=== PATIENT | male | born 1940 | race Caucasian/White ===

== ENCOUNTER → 2017-07-17 | Outpatient (CLI) | payer OTHER ==
[~2017-07-17] MED LIST: ASPIR 8181 MG PO; ASPIRIN EC81 M1 PO; ASPIRIN325 PO; COUMADIN 5 MG TA5 M1 PO; DICLOFENAC SODI75 MG PO; FISH OIL 1,0001 EAC5 PO; HYDROCODON-ACE1 EAC5; HYDROCODON-ACE1 EAC7 PO; IBUPROFEN 200200 M1 PO; IRON325 PO; JANTOVEN5 MG PO; LEVOTHYROXINE0.05 MG PO; MAGNESIUM400 MG PO; MOBIC15 MG PO; MS CONTIN15 MG PO; MULTIVITAMINS PO; NEURONTIN 300300 M1 PO; PERCOCET 5-3251 EACH PO; PROPAFENONE HC325 MG PO; SAW PALMETTO C1 EACH PO; TAMSULOSIN HCL0.4 M1 PO; TOPROL XL50 MG PO; TRI-BUFFERED A325 M1 PO
== END ==
LOC: ULTRA 10:36
DX: M79.89 Other specified soft tissue disorders (principal); M79.605 Pain in left leg

== ENCOUNTER 2017-12-17 05:32 | Inpatient (IN) | payer OTHER ==
[2017-12-08 09:06] LABS: HEMOGLOBIN 13.9 gm/dL (14.0-18.0); MCH 33.8 pg (26.0-34.0); MCHC 34.7 g/dL (28.0-37.0); MCV 97.4 fL (80.0-100.0); RBC 4.11 mil/uL (4.50-6.00); RDW 13.7 % (10.5-14.5); WBC 3.8 thou/uL (4.0-11.0)
[2017-12-08 09:08] LABS: URINE BILIRUBIN NEGATIVE (Negative); URINE BLOOD NEGATIVE (Negative); URINE CLARITY CLEAR; URINE COLOR YELLOW; URINE GLUCOSE-RANDOM* NEGATIVE (Negative); URINE KETONES NEGATIVE (Negative); URINE LEUKOCYTES-REFLEX NEGATIVE (Negative); URINE NITRITE-REFLEX NEGATIVE (Negative); URINE PROTEIN (DIPSTICK) NEGATIVE (Negative); URINE UROBILINOGEN 0.2 E.U./dl (0.2-1.0)
[2017-12-08 09:19] LABS: ALBUMIN 3.9 g/dL (3.4-5.0); CALCIUM 9.2 mg/dL (8.5-10.1); CREATININE 1.5 mg/dL (0.7-1.3); POTASSIUM 4.6 mmol/L (3.5-5.1)
[2017-12-08 09:30] LABS: PROTIME 10.2 Seconds (9.3-11.4)
[~2017-12-17] VITALS: Ht 162.6 cm; Wt 70.8 kg
--- NOTE | ~2017-12-17 | O ---
[facility] [place] [address] OPERATIVE REPORT Name: DARRIUS CRUZ Room #: 150-10 ADM IN M.R.#: [id number] Admission: 12/17/17 Attend Phys: Mio Reid MD Discharge: Date of : 41 Report #: [id number] THIS REPORT FOR: //name// CC: Janessa Reid DATE OF SERVICE: 12/17/2017 PREOPERATIVE DIAGNOSIS: Left knee osteoarthritis. POSTOPERATIVE DIAGNOSIS: Left knee osteoarthritis. PROCEDURE: Left total knee arthroplasty with Navio assistance. SURGEON: Mio Reid MD FORESTRY LABORER: Angélica Avila PA-C INDICATIONS FOR ASSISTANCE: Throughout the case, extensive retraction and manipulation of the knee was required. This was afforded to me by my assistant vice president. ANESTHESIA: LMA with an adductor canal block. IMPLANTS: Santana and Nephew size 6 Legion cobalt chrome posterior stabilized femur, a size 5 tibia, a size 35 patella and a size 10 polyethylene. TOURNIQUET TIME: 76 minutes. ESTIMATED BLOOD LOSS: 25 mL. COMPLICATIONS: None. SPECIMENS: None. CONDITION UPON LEAVING THE OPERATING ROOM: Stable. INDICATION FOR PROCEDURE: The patient is a 77-year-old gentleman with severe left knee osteoarthritis. He had failed conservative treatment for this and after discussion with him, he elected for left total knee arthroplasty. DESCRIPTION OF PROCEDURE: Risks, benefits, alternatives, complications were discussed in detail with the patient including but not limited to risk of anesthesia, risk of damage to nerves, arteries and blood vessels, risk for infection and bleeding, risk for continued knee pain, need for reoperation. Informed consent was obtained from the patient. The left knee was appropriately marked in the preoperative holding area. IV Ancef was given for preoperative [address] [address] OPERATIVE REPORT Name: DARRIUS CRUZ Room #: 150-10 ADM IN M.R.#: [id number] Admission: 12/17/17 Attend Phys: Mio Reid MD Discharge: Date of : 41 Report #: [id number] antibiotics. He was brought to the operating room and placed in the supine position on the operating room table. LMA anesthesia was induced without complication. Tourniquet was placed on the left thigh. Left lower extremity was prepped and draped in normal sterile fashion. Timeout was performed properly identifying the patient and procedure as well as the instrumentation and implants. All in the operating room were in agreement. Left lower extremity was exsanguinated. Tourniquet was inflated. Tourniquet time was 76 minutes. Standard midline approach to the knee was made with a 10 blade through the skin. Dissection was taken down sharply to the fascia and deep flaps were developed medially and laterally. Fresh 10 blade was used to make a medial parapatellar arthrotomy and the knee was inspected. There was significant severe tricompartmental osteoarthritis. Anterior horns of meniscus were removed sharply. ACL and PCL were removed sharply. Reference pins were then placed into the femur and the tibia and the knee was then digitally mapped using the NaviMER computerized system. Intraoperative plan was then made, sizing for a size 6 femur and a size 5 tibia. The distal femoral cut was then made with a Navio bur. The size 6, 4-in-1 cutting block was placed and the anterior, posterior and chamfer cuts were made on the femur. Attention was then turned to the tibia. The tibial resection guide was pinned in place using Navio and tibial resection was made. The remainder of the menisci were removed with Bovie cautery. Flexion and extension gaps were checked and found to have good balance in flexion and extension both medially and laterally. Tibia was sized, found to be a size 5. A size 5 tibial trial was placed and punched. A size 6 femoral trial was placed and the box cut was made and this was then trialed with a size 9 and then a size 10 polyethylene. The size 10 polyethylene had good balance in flexion and extension both medially and laterally, both manually as well as digitally on the Navio system. A 9 mm was taken off the posterior surface of the patella and a size 35 patellar trial was placed. Knee was taken through range of motion, found to be stable, found to have good balance in flexion and extension with good patellar tracking. Trial components were removed. Bone ends were thoroughly irrigated with normal saline. A final size 5 tibia, size 6 Legion cobalt chrome posterior stabilized femur and a size 35 patella were cemented in place using standard cementation techniques. While the cement cured, a periarticular injection consisting of morphine, ropivacaine, epinephrine and Toradol was placed around the knee joint. After the cement cured, the tourniquet was deflated. Hemostasis was obtained with Bovie cautery. Final size 10 polyethylene was placed. A gram of vancomycin was placed deep in the joint. Fascia was closed with 0 Vicryl, skin was closed with 2-0 Vicryl, 3-0 Monocryl and a CRISTOBAL dressing was applied. The patient tolerated this procedure well and went to recovery room under care of anesthesia postoperatively. By: [id number] Mio Reid MD /kristina
[~2017-12-17 05:32] MED LIST changes: -ASPIR 8181 MG PO; -HYDROCODON-ACE1 EAC7 PO; -MS CONTIN15 MG PO; -NEURONTIN 300300 M1 PO; -PERCOCET 5-3251 EACH PO; -TRI-BUFFERED A325 M1 PO
[2017-12-17 14:46] VITALS: BP 130/71
[2017-12-17 18:02] VITALS: BP 140/87
[2017-12-17 20:08] VITALS: BP 140/87
[2017-12-17 20:35] VITALS: BP 121/71
[2017-12-18 00:16] VITALS: BP 120/70
[2017-12-18 03:57] VITALS: BP 110/67
[2017-12-18 06:19] LABS: HEMATOCRIT 31.5 % (42.0-52.0); HEMOGLOBIN 10.8 gm/dL (14.0-18.0); MCHC 34.4 g/dL (28.0-37.0); MCV 98.7 fL (80.0-100.0); RBC 3.19 mil/uL (4.50-6.00); RDW 13.4 % (10.5-14.5); WBC 6.7 thou/uL (4.0-11.0)
[2017-12-18 15:47] VITALS: BP 93/52
[2017-12-18 19:30] VITALS: BP 104/61
[2017-12-19 04:09] VITALS: BP 97/57
[2017-12-19 06:43] LABS: HEMOGLOBIN 10.1 gm/dL (14.0-18.0); MCH 34.3 pg (26.0-34.0); MCHC 34.9 g/dL (28.0-37.0); MCV 98.5 fL (80.0-100.0); RBC 2.94 mil/uL (4.50-6.00); RDW 13.1 % (10.5-14.5); WBC 6.3 thou/uL (4.0-11.0)
[2017-12-19 07:50] VITALS: BP 107/58
[2017-12-19] MEDS ORDERED: TRI-BUFFERED A325 M1 PO (14:53)
[2017-12-19] MEDS ORDERED: MS CONTIN15 MG PO (14:54)
[2017-12-19] MEDS ORDERED: NEURONTIN 300300 M1 PO (14:54)
[2017-12-19] MEDS ORDERED: HYDROCODON-ACE1 EAC7 PO (14:54)
[2017-12-19 17:40] VITALS: BP 95/65
[2017-12-19 20:39] VITALS: BP 114/66
[2017-12-20 04:52] VITALS: BP 112/65
[2017-12-20 06:18] LABS: HEMATOCRIT 28.9 % (42.0-52.0); HEMOGLOBIN 10.2 gm/dL (14.0-18.0); MCH 34.5 pg (26.0-34.0); MCHC 35.2 g/dL (28.0-37.0); RBC 2.95 mil/uL (4.50-6.00); RDW 13.1 % (10.5-14.5); WBC 6.6 thou/uL (4.0-11.0)
[2017-12-20 08:05] VITALS: BP 108/62
[2017-12-20 20:15] VITALS: BP 105/57
[2017-12-21 03:52] VITALS: BP 85/40
[2017-12-21 07:50] VITALS: BP 97/57
[2017-12-21 11:39] LABS: CALCIUM 8.4 mg/dL (8.5-10.1); CREATININE 1.4 mg/dL (0.7-1.3); POTASSIUM 4.7 mmol/L (3.5-5.1)
[2017-12-21 14:29] VITALS: BP 97/57
[2017-12-21 14:34] VITALS: BP 97/57
[2017-12-21 14:37] VITALS: BP 97/57
== END 2017-12-21 15:38 | disposition home or self-care (01) | DRG 470 ==
LOC: 4E 05:32 → TBA 05:32 → PRE 05:35 → 4E 17:35
PROVIDERS: Orthopaedic Surgery; Physician Assistant Surgical
PROC: 0SRD0J9 Replacement of Left Knee Joint with Synthetic Substitute, Cemented, Open Approach (ICD-10-PCS; principal; 2017-12-17)
DX: M17.12 Unilateral primary osteoarthritis, left knee (principal); M18.12 Unilateral primary osteoarthritis of first carpometacarpal joint, left hand; M19.042 Primary osteoarthritis, left hand; M79.1 Myalgia; Z96.651 Presence of right artificial knee joint; Z79.899 Other long term (current) drug therapy; Z88.2 Allergy status to sulfonamides; Z90.49 Acquired absence of other specified parts of digestive tract; Z82.49 Family history of ischemic heart disease and other diseases of the circulatory system
CPT/HCPCS: 10783; 50010; 50101; 50415; 50954; 51130; 51225; 51771; 53000; 53078; 53364; 54118; 56527; 56528; 57095; 57127; 62110; 62900; 70005

== ENCOUNTER 2018-01-16 05:53 | Day surgery (SDC) | payer OTHER ==
[~2018-01-16] VITALS: Ht 167.6 cm; Wt 70.3 kg
--- NOTE | ~2018-01-16 | O ---
[facility] [place] [address] [place] [address] OPERATIVE REPORT Name: DARRIUS CRUZ Room #: DEP [facility] M.Marky.#: [id number] Admission: 01/16/18 Attend Phys: Mio Reid MD Discharge: 01/16/18 Date of : 41 Report #: [id number] THIS REPORT FOR: //name// CC: Janessa Yonathan Reid DATE OF SERVICE: 01/16/2018 PREOPERATIVE DIAGNOSIS: Left knee quadriceps tear, status post total knee arthroplasty. POSTOPERATIVE DIAGNOSIS: Left knee medial retinacular tear, status post left total knee arthroplasty. PROCEDURE: Primary repair of left knee retinacular tear. SURGEON: Mio Reid MD. MEDICAL INSTRUMENT TECHNICIAN: Angélica Avila PA-C. ANESTHESIA: LMA. TOURNIQUET TIME: 27 minutes. ESTIMATED BLOOD LOSS: 10 mL. COMPLICATIONS: None. SPECIMENS: None. CONDITION UPON LEAVING THE OPERATING ROOM: Stable. INDICATIONS FOR PROCEDURE: The patient is a 77-year-old gentleman who is about 4 weeks out from a left knee arthroplasty and had significant swelling in his knee. He presented to the office and had exam consistent with a quadriceps tendon tear. He had an ultrasound performed by one of my partners confirming this and after discussion with him, we decided for primary tendon repair. DESCRIPTION OF PROCEDURE: Risks, benefits, alternatives, complications were discussed in detail with the patient including but not limited to risk of anesthesia, risk of damage to nerves, arteries, blood vessels, risk for infection and need for reoperation. Informed consent was obtained from the patient. Left knee was appropriately marked in the preoperative holding area. He was brought to the operating room and placed in the supine position on the operating room table. LMA anesthesia was induced without complication. Tourniquet was placed on the left thigh. Left lower extremity was prepped and [facility] [address] [place] [address] OPERATIVE REPORT Name: DARRIUS CRUZ Room #: DEP [facility] Edwin#: [id number] Admission: 01/16/18 Attend Phys: Mio Reid MD Discharge: 01/16/18 Date of : 41 Report #: [id number] draped in normal sterile fashion. Timeout was performed properly identifying the patient and procedure as well as the instrumentation and implants. All in the operating room were in agreement. Left lower extremity was exsanguinated, tourniquet was inflated. Tourniquet time was 27 minutes. The previous incision from his knee arthroplasty was then opened with a 10 blade through the skin and upon entering the deep layers of the medial and lateral full-thickness flaps were developed easily. There was a large hemarthrosis that was removed and the tear was inspected. He essentially had torn his medial retinacular incision, this did extent off the patella. This was thoroughly irrigated and it was felt that this could be primarily repaired and backed up with a FiberWire suture. After very thorough irrigation, the retinacular incision was repaired with interrupted 0 Vicryl sutures. A 2-0 FiberWire was also used for repair of the retinaculum. After repair, this was inspected and found to have excellent tension on the repair even at 90 degrees of knee flexion. Tourniquet was deflated. Hemostasis was obtained with Bovie cautery and the skin was closed with 2-0 Vicryl and skin venkatesh were applied. A hinged knee brace was applied and this was locked from 0-60 degrees. He went to the recovery room under care of anesthesia postoperatively. <ELECTRONICALLY SIGNED> By: Mio Reid MD 01/22/18 0741 [id number] Mio Reid MD /nt
[~2018-01-16 05:53] MED LIST changes: +HYDROCODON-ACE1 EAC7 PO; +MS CONTIN15 MG PO; +NEURONTIN 300300 M1 PO; +TRI-BUFFERED A325 M1 PO
[2018-01-16] MEDS ORDERED: ASPIR 8181 MG PO (09:51)
[2018-01-16 13:57] VITALS: BP 124/71
[2018-01-16] MEDS ORDERED: PERCOCET 5-3251 EACH PO (15:11)
[2018-01-16 16:01] VITALS: BP 124/71
== END 2018-01-16 16:35 | disposition home or self-care (01) ==
LOC: TBA 05:53 → OR 05:53
DX: S76.112A Strain of left quadriceps muscle, fascia and tendon, initial encounter (principal); M17.12 Unilateral primary osteoarthritis, left knee; Z96.652 Presence of left artificial knee joint; Z98.890 Other specified postprocedural states; Z79.899 Other long term (current) drug therapy; Z88.2 Allergy status to sulfonamides; Z88.8 Allergy status to other drugs, medicaments and biological substances; Z79.82 Long term (current) use of aspirin; X58.XXXA Exposure to other specified factors, initial encounter; Y93.89 Activity, other specified; Y92.89 Other specified places as the place of occurrence of the external cause; Y99.8 Other external cause status
CPT/HCPCS: 50010; 50101; 50415; 50954; 51412; 51771; 53078; 56528; 56530; 57095; 57103; 57105; 57116; 62110; 62900; 64037; 70005

== ENCOUNTER → 2019-11-10 | Outpatient (CLI) | payer OTHER ==
[~2019-11-10] MED LIST changes: +ASPIR 8181 MG PO; +PERCOCET 5-3251 EACH PO
== END ==
LOC: SJCVC 11:33
DX: R94.31 Abnormal electrocardiogram [ECG] [EKG] (principal); I21.29 ST elevation (STEMI) myocardial infarction involving other sites; I48.0 Paroxysmal atrial fibrillation; E78.5 Hyperlipidemia, unspecified; I35.1 Nonrheumatic aortic (valve) insufficiency

== ENCOUNTER → 2020-05-26 | Outpatient (CLI) | payer OTHER | LOC: SJCVC 10:04 | PROVIDERS: ATTEND Internal Medicine | DX: R00.1 Bradycardia, unspecified (principal); R94.31 Abnormal electrocardiogram [ECG] [EKG]; I48.0 Paroxysmal atrial fibrillation; I35.1 Nonrheumatic aortic (valve) insufficiency; E78.5 Hyperlipidemia, unspecified; Z79.82 Long term (current) use of aspirin; Z79.899 Other long term (current) drug therapy ==

== ENCOUNTER → 2020-11-29 | Outpatient (CLI) | payer OTHER | LOC: SJCVCIMAG 09:13 | PROVIDERS: ATTEND Internal Medicine | DX: I08.3 Combined rheumatic disorders of mitral, aortic and tricuspid valves (principal); R94.31 Abnormal electrocardiogram [ECG] [EKG]; I49.49 Other premature depolarization; I48.0 Paroxysmal atrial fibrillation; E78.5 Hyperlipidemia, unspecified; Z90.49 Acquired absence of other specified parts of digestive tract; Z88.2 Allergy status to sulfonamides; Z88.8 Allergy status to other drugs, medicaments and biological substances; Z79.82 Long term (current) use of aspirin; Z79.899 Other long term (current) drug therapy ==

== ENCOUNTER 2021-01-22 08:24 | Inpatient (IN) | payer OTHER ==
[~2021-01-22] VITALS: Ht 165.1 cm; Wt 64.0 kg
[2021-01-22 08:41] VITALS: BP 122/95
[2021-01-22 08:53] LABS: URINE BILIRUBIN NEGATIVE (Negative); URINE BLOOD TRACE (Negative); URINE CLARITY CLEAR; URINE COLOR YELLOW; URINE GLUCOSE-RANDOM* NEGATIVE (Negative); URINE KETONES NEGATIVE (Negative); URINE LEUKOCYTES-REFLEX NEGATIVE (Negative); URINE NITRITE-REFLEX NEGATIVE (Negative); URINE PROTEIN (DIPSTICK) NEGATIVE (Negative); URINE UROBILINOGEN 0.2 E.U./dl (0.2-1.0)
[2021-01-22 09:00] LABS: HEMATOCRIT 40.6 % (42.0-52.0); HEMOGLOBIN 13.8 gm/dL (14.0-18.0); MCH 33.4 pg (26.0-34.0); MCV 98.2 fL (80.0-100.0); PLATELET COUNT 172 thou/uL (150-400); RBC 4.13 mil/uL (4.50-6.00); RDW 14.3 % (10.5-14.5); WBC 2.3 thou/uL (4.0-11.0)
[2021-01-22 09:16] LABS: CALCIUM 8.6 mg/dL (8.5-10.1); CREATININE 1.1 mg/dL (0.7-1.3); POTASSIUM 4.1 mmol/L (3.5-5.1)
[2021-01-22 09:22] LABS: ALBUMIN 3.4 g/dL (3.4-5.0); TOTAL BILIRUBIN 0.6 mg/dL (0.2-1.0); TOTAL PROTEIN 6.8 g/dL (6.4-8.2)
[2021-01-22 10:05] LABS: ABSOLUTE NEUTROPHILS 1.2 thou/uL (1.4-8.2); PLATELET ESTIMATE NORMAL
--- NOTE | 2021-01-22 10:36 | EKG ---
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 : 1940 Requested By: Seymour Loomis Order Number: [id number] MD: Rolando Puckett Measurements Intervals [place] Rate: 64 P: 48 SC: 162 QRS: -18 QRSD: 104 T: 46 QT: 413 QTc: 426 Interpretive Statements Sinus rhythm Borderline left axis deviation Baseline wander in lead(s) V3 Compared to ECG 01/01/2012 10:06:00 Sinus bradycardia no longer present Electronically Signed On 01-22-2021 10:36:07 CDT by Rolando Puckett [email or web address] <ELECTRONICALLY SIGNED> By: Rolando Puckett MD, [facility] 01/22/21 1036 1004 03 Rolando Puckett MD, FACPasha /EPI
[2021-01-22 12:06] LABS: TROPONIN-I 0.17 ng/mL (<0.06)
[2021-01-22 15:00] VITALS: BP 128/71
[2021-01-22 16:58] VITALS: BP 122/69
--- NOTE | 2021-01-22 17:33 | NUR ---
80 year old male well known to Dr. Melendez with a hx of paroxysmal atrial fibrillation presented to the ED on 01-22-21 for complaints of GI pain, nausea, vomiting and diarrhea for the past 7 days. The patient also reports feeling more fatigued. ID NOW in the ED is negative and patient reports vaccinated with Moderna in August. The patient has been admitted for: Generalized weakness - possible rhabdomyolysis, dehydration and consults for Cardiology has been placed. The patient was found to have an elevated troponins. The patients Juany at [phone] is listed as his next of kin. The patient is a PCP patient of Dr. Janessa Mcmanus. The patient was ambulatory upon arrival to the ED brought in by private vehicle. The ED lists the patient as A&O x4. Attempted to reach without success on cell of [phone], but was able to reach the at home as she just returned from the ED to home at [phone]. Re-explained role of CM and discussed last interaction in 2018 and outpatient needs following a left knee tear and repair at that time. Explained after MD plans of care and treatment plan are established and therapy evaluated; that CM will be in touch for discharge needs. CM will continue to follow.
[2021-01-22 18:40] VITALS: BP 134/69
[2021-01-22 20:02] VITALS: BP 134/76
[2021-01-22 21:40] LABS: TROPONIN-I 0.18 ng/mL (<0.06)
--- NOTE | 2021-01-23 02:29 | NUR ---
new admission for weakness and anorexia for a week. patient aox4 makes needs known. patient needs minimum assistance with adl, bed mobility, transfer and toileting. fall precaution in place.patient in bed asleep at this time breathing regular and unlaboured.
[2021-01-23 05:07] LABS: GLYCOHEMOGLOBIN (HGB A1C) 5.9 % (4.8-5.6)
[2021-01-23 05:39] LABS: HEMATOCRIT 36.7 % (42.0-52.0); HEMOGLOBIN 12.6 gm/dL (14.0-18.0); MCH 34.1 pg (26.0-34.0); MCHC 34.5 g/dL (28.0-37.0); MCV 98.9 fL (80.0-100.0); RBC 3.71 mil/uL (4.50-6.00); RDW 14.2 % (10.5-14.5); WBC 2.9 thou/uL (4.0-11.0)
[2021-01-23 06:02] LABS: ALBUMIN 2.8 g/dL (3.4-5.0); CALCIUM 8.1 mg/dL (8.5-10.1); POTASSIUM 4.5 mmol/L (3.5-5.1); TOTAL BILIRUBIN 0.4 mg/dL (0.2-1.0); TOTAL PROTEIN 5.9 g/dL (6.4-8.2)
[2021-01-23 07:31] VITALS: BP 125/67
--- NOTE | 2021-01-23 09:13 | NUR ---
80 year old male well known to Dr. Melendez with a hx of paroxysmal atrial fibrillation presented to the ED on 01-22-21 for complaints of GI pain, nausea, vomiting and diarrhea for the past 7 days. The patient also reports feeling more fatigued. ID NOW in the ED is negative and patient reports vaccinated with Moderna in August. The patient has been admitted for: Generalized weakness - possible rhabdomyolysis, dehydration and consults for Cardiology has been placed. The patient was found to have an elevated troponins. The patients Juany at [phone] is listed as his next of kin. The patient is a PCP patient of Dr. Janessa Mcmanus. The patient was ambulatory upon arrival to the ED brought in by private vehicle. The ED lists the patient as A&O x4. Attempted to reach without success on cell of [phone], but was able to reach the at home as she just returned from the ED to home at [phone]. Re-explained role of CM and discussed last interaction in 2018 and outpatient needs following a left knee tear and repair at that time. Explained after MD plans of care and treatment plan are established and therapy evaluated; that CM will be in touch for discharge needs. CM will continue to follow. Based on chart review pt resides in a house with spouse. 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 Pt has fww, cane, crutches, and power wc for use at home. Cm following regarding dc planning.
[2021-01-23 16:45] VITALS: BP 131/89
--- NOTE | 2021-01-23 16:52 | NUR ---
Assumed pt care at 7am.Pt in bed resting without c/o.Assessment completed.vss. Dr Melendez and Jacqueline here,order noted.Pt here to visit,updates given. Regular diet given at lunch and well tolerated.Pt in and out of bed to br with sba .No verbal c/o or soa noted. Will continue to monitor.
[2021-01-23 20:15] VITALS: BP 134/67
--- NOTE | 2021-01-24 02:07 | NUR ---
PT CARE ASSUMED AT 1900 WITH PT SITTING IN CHAIR WITH SON AT BEDSIDE.PT IS A/O X4.PT IS UP WITH X1 ASSIST TO THE BATHROOM AND USES URINAL TO VOID.PT IS ON ROOM AIR.IV ACCESS IN RAC WITH 0.45NS @75CC/HR.PT DENIED PAIN ,NAUSEA AND VOMITING.WILL CONTINUE TO MONITOR PER POC
[2021-01-24 07:54] VITALS: BP 159/89
[2021-01-24 11:38] LABS: POTASSIUM 3.7 mmol/L (3.5-5.1)
--- NOTE | 2021-01-24 11:40 | NUR ---
ASSUMED PT CARE THIS AM. PT A&OX4, ABLE TO MAKE NEEDS KNOWN. PATIENT REMAINS CONTINENT, UP WITH ASSIST TO THE BATHROOM. PATIENT IS ON ROOM AIR. MEDICATION TAKEN WITHOUT ISSUE. IV PATENT, FLUIDS INFUSING. FALL PRECAUTIONS ARE IN PLACE, CALL LIGHT WITHIN REACH. FAMILY MEMBER AT BEDSIDE.
[2021-01-24 11:45] LABS: LIPASE 465 U/L (73-393)
[2021-01-24 11:47] LABS: ALBUMIN 3.1 g/dL (3.4-5.0); DIRECT BILIRUBIN 0.1 mg/dL (<0.1-0.2); TOTAL BILIRUBIN 0.5 mg/dL (0.2-1.0); TOTAL PROTEIN 6.2 g/dL (6.4-8.2)
[2021-01-24 15:40] VITALS: BP 156/88
--- NOTE | 2021-01-24 16:15 | NUR ---
HOSPITALIST INDICATED THAT PT WILL LIKELY BE MEDICALLY STABLE TO DC HOME TOMORROW. PT AND OT SAW PT AND INDICATED HE WOULD BE SAFE FOR DC HOME ONCE MEDICALLY STABLE. CM FOLLOWING REGARING DC PLANNING.
[2021-01-24 20:00] VITALS: BP 135/82
--- NOTE | 2021-01-25 02:36 | NUR ---
PT CARE ASSUMED WITH PT IN CHAIR WATCHING TV.PT IS A/O X4.PT IS UP WITH X1 ASSIST TO BATHROOM AND USES URINAL TO VOID.PT DENIED ANY PAIN AND HAS MELATONIN FOR SLEEP AID.IV ACCESS ON RFA WITH NS AT 100CC/HR.PT IS ON ROOM AIR.WILL CONTINUE TO MONITOR
[2021-01-25 06:16] LABS: HEMATOCRIT 35.3 % (42.0-52.0); HEMOGLOBIN 12.2 gm/dL (14.0-18.0); MCH 33.9 pg (26.0-34.0); MCHC 34.5 g/dL (28.0-37.0); MCV 98.4 fL (80.0-100.0); RBC 3.59 mil/uL (4.50-6.00); WBC 3.6 thou/uL (4.0-11.0)
[2021-01-25 06:36] LABS: ALBUMIN 2.7 g/dL (3.4-5.0); CALCIUM 8.1 mg/dL (8.5-10.1); CREATININE 0.9 mg/dL (0.7-1.3); MAGNESIUM 1.7 mg/dL (1.8-2.4); POTASSIUM 3.7 mmol/L (3.5-5.1); TOTAL BILIRUBIN 0.6 mg/dL (0.2-1.0); TOTAL PROTEIN 5.5 g/dL (6.4-8.2)
[2021-01-25 08:05] VITALS: BP 158/84
--- NOTE | 2021-01-25 13:16 | NUR ---
ASSUMED CARE OF PATIENT AT SHIFT CHANGE. ASSESSMENT CHARTED. MEDICATIONS ADMINISTERED PER EMAR. VSS. PATIENT IS A&OX4 AND DENIES PAIN BUT VOICING NAUSEA. NO ANTI NAUSEA MEDS ON EMAR; PROVIDER INFORMED AND PROVIDED A ONETIME ORDER FOR COMPAZINE; ADMINISTERED W NOTED RELIEF. PROVIDER ALSO CONSULTED GI; EGD TO BE DONE TOMORROW 01/26. PATIENT WILL BE NPO AFTER MIDNIGHT. IVF INFUSING ON RFA W NO ISSUES. PATIENT VOICING NO FURTHER NEEDS. FALL PRECAUTIONS IN PLACE. WILL CONTINUE TO MONITOR AND FOLLOW PLAN OF CARE.
[2021-01-25 14:00] VITALS: BP 125/68
--- NOTE | 2021-01-25 14:05 | NUR ---
CARE TEAM INDICATED THAT PT IS PROGRESSING TOWARD GOAL OF DISCHARGING HOME. THEY INDICATED THAT PT WILL LIKELY BE DC READY TOMORROW. CM FOLLOWING REGARDING DC PLANNING.
[2021-01-25 19:28] VITALS: BP 145/85
[2021-01-26 02:26] LABS: HEMATOCRIT 33.8 % (42.0-52.0); HEMOGLOBIN 11.9 gm/dL (14.0-18.0); MCH 34.6 pg (26.0-34.0); MCHC 35.3 g/dL (28.0-37.0); MCV 98.2 fL (80.0-100.0); RBC 3.45 mil/uL (4.50-6.00); RDW 14.1 % (10.5-14.5); WBC 7.5 thou/uL (4.0-11.0)
[2021-01-26 02:46] LABS: ALBUMIN 2.8 g/dL (3.4-5.0); CALCIUM 7.8 mg/dL (8.5-10.1); CREATININE 0.9 mg/dL (0.7-1.3); POTASSIUM 3.7 mmol/L (3.5-5.1); TOTAL BILIRUBIN 0.6 mg/dL (0.2-1.0); TOTAL PROTEIN 5.4 g/dL (6.4-8.2)
--- NOTE | 2021-01-26 03:32 | NUR ---
Today this pt has been NSR in the 60s to 70s with no stated pain and stable VS. He has been sleep for most of the nigth while using the urinal at bedside. He has tolerated his IV fluids well and he has been NPO at midnight awaiting his procedure later today.
[2021-01-26 04:06] LABS: HAV IgM AB (ANTI-HAV IgM) Negative (Negative); HEPATITIS B SURFACE AG Negative (Negative); HEPATITIS C VIRUS AB <0.1 (0.0-0.9)
[2021-01-26 07:11] VITALS: BP 142/75
[2021-01-26] MEDS ORDERED: PROTONIX40 M2 PO (14:59)
[2021-01-26 15:16] VITALS: BP 125/64
[2021-01-26 15:26] VITALS: BP 142/75
== END 2021-01-26 16:49 | disposition home or self-care (01) | DRG 384 ==
LOC: ER 08:24 → EROBS 14:12 → 4W 14:12 → EROBS 16:00 → 4W 19:20
PROVIDERS: Emergency Medicine; Internal Medicine; Nurse Practitioner; Physician Assistant; ADMIT Internal Medicine; ATTEND Internal Medicine
PROC: 0DB68ZX Excision of Stomach, Via Natural or Artificial Opening Endoscopic, Diagnostic (ICD-10-PCS; principal; 2021-01-26)
DX: K25.9 Gastric ulcer, unspecified as acute or chronic, without hemorrhage or perforation (principal); M62.82 Rhabdomyolysis; E87.1 Hypo-osmolality and hyponatremia; K29.70 Gastritis, unspecified, without bleeding; E86.0 Dehydration; Z20.822 Contact with and (suspected) exposure to COVID-19; F32.9 Major depressive disorder, single episode, unspecified; F41.9 Anxiety disorder, unspecified; Z96.653 Presence of artificial knee joint, bilateral; I48.0 Paroxysmal atrial fibrillation; I08.0 Rheumatic disorders of both mitral and aortic valves; R53.81 Other malaise; G47.00 Insomnia, unspecified; D50.9 Iron deficiency anemia, unspecified; Z85.46 Personal history of malignant neoplasm of prostate; Z90.49 Acquired absence of other specified parts of digestive tract; Z86.14 Personal history of Methicillin resistant Staphylococcus aureus infection; Z88.8 Allergy status to other drugs, medicaments and biological substances; Z88.6 Allergy status to analgesic agent; Z91.013 Allergy to seafood; Z82.49 Family history of ischemic heart disease and other diseases of the circulatory system; Z79.82 Long term (current) use of aspirin; Z79.899 Other long term (current) drug therapy; Z80.41 Family history of malignant neoplasm of ovary
CPT/HCPCS: 10045; 62110; 62900; 70005

== ENCOUNTER 2021-01-28 10:40 | Observation (INO) | payer OTHER ==
[~2021-01-28] VITALS: Ht 165.1 cm; Wt 69.4 kg
--- NOTE | ~2021-01-28 | HC ---
[facility] [address] [place] [address] CONSULTATION Name: DARRIUS CRUZ Room #: 218-P [facility] Edwin#: [id number] Admission: 01/28/21 Attend Phys: Bryson Phillips MD Discharge: Date of : 41 Report #: [id number] THIS REPORT FOR: cc: Janessa Mcmanus MD, Nora P. MD Smithson, David G. MD ~ HISTORY OF PRESENT ILLNESS: The patient is a 80-year-old white male who was recently admitted to [facility], had hyponatremia, mild rhabdomyolysis, elevated troponin; underwent EGD, diagnosed with gastritis, placed on a PPI. Discharged home. Apparently mopped the floor at home with some cumulative trauma/repetitive discomfort to his wrist and placed a left wrist brace on. 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 He was leaning over and fell forward, hitting his head. He is readmitted to [facility]. CT of the head was negative. No complaints of losing consciousness. Laceration was sutured. Still does not like to eat very much because of the abdominal pain or nausea, although he thinks it is better than it was. We are seeing him in rehabilitation medicine consultation. PAST MEDICAL HISTORY: His prior medical history includes history of atrial fibrillation, prostate CA with radiation therapy, depression/anxiety, cholecystectomy, bilateral total knee replacements. HABITS: No history of tobacco abuse. Alcohol only on special occasions. SOCIAL HISTORY: Lives with his . Five steps in with rail to enter, was premorbidly independent without devices, works from home. His is retired. REVIEW OF SYSTEMS: No current complaints of chest pain, shortness of breath or abdominal discomfort. PHYSICAL EXAMINATION: The patient is a 80-year-old white male in no obvious distress. Last recorded temperature 97.6, pulse 79, respirations 18, blood pressure 130/73. He is alert and oriented. He has considerable ecchymosis and then has the laceration in the periorbital area. Follows basic 1-step commands. He has a left wrist orthosis in place, which is his own orthosis. Can move his thumb and fingers without difficulty. Functional range of motion of both upper extremities. No obvious coordination difficulties. In his lower extremities, no focal calf swelling, functional range of motion, strength is probably a grade 4 to 4- out of 5. Tone appeared to be intact. Functionally, he is transferring in OT with min assist to the toilet. He is min assist to ambulate without an assistive device to the bathroom. He is min assist for lower body dressing. ASSESSMENT: A 80-year-old white male with the following problem list: 1. Gait instability with fall. 2. Facial laceration. [address] [address] CONSULTATION Name: DARRIUS CRUZ Room #: 218-P [facility] M.R.#: [id number] Admission: 01/28/21 Attend Phys: Bryson Phillips MD Discharge: Date of : 41 Report #: [id number] 3. Troponin elevation. 4. Hyponatremia. 5. Paroxysmal atrial fibrillation. 6. Recent severe gastritis with elevated liver function tests. 7. Generalized weakness. PLAN: Physical therapy to evaluate. We are assessing the patient's current function and considering whether he may be appropriate for a short acute in-hospital inpatient rehabilitation stay. We will need to see how he does in therapies and see if he qualifies for a short rehabilitation stay and then, if he does qualify, we will need to see if he is amenable. We will be glad to follow along with you. By: [id number] Ferdinand Rodas MD /nt
[~2021-01-28 10:40] MED LIST changes: +PROTONIX40 M2 PO
[2021-01-28 10:56] VITALS: BP 134/81
[2021-01-28] MEDS ORDERED: LEVOTHYROXINE75 MCG PO (11:02)
[2021-01-28] MEDS ORDERED: VITAMIN D21250 MCG PO (11:02)
[2021-01-28 11:51] LABS: URINE BILIRUBIN NEGATIVE (Negative); URINE BLOOD NEGATIVE (Negative); URINE CLARITY CLEAR; URINE COLOR YELLOW; URINE GLUCOSE-RANDOM* NEGATIVE (Negative); URINE KETONES NEGATIVE (Negative); URINE LEUKOCYTES-REFLEX NEGATIVE (Negative); URINE NITRITE-REFLEX NEGATIVE (Negative); URINE PROTEIN (DIPSTICK) NEGATIVE (Negative); URINE SPECIFIC GRAVITY 1.015 (1.005-1.035)
[2021-01-28 11:59] LABS: CALCIUM 8.6 mg/dL (8.5-10.1); POTASSIUM 4.1 mmol/L (3.5-5.1)
[2021-01-28 12:03] LABS: ABSOLUTE NEUTROPHILS 5.9 thou/uL (1.4-8.2); APTT 27.6 Seconds (24.5-32.8); BASOPHILS 0.3 % (0.0-2.0); EOSINOPHILS 0.1 % (0.0-3.0); HEMATOCRIT 35.3 % (42.0-52.0); HEMOGLOBIN 11.8 gm/dL (14.0-18.0); LYMPHOCYTES 6.3 % (24.0-44.0); MCH 32.9 pg (26.0-34.0); MCHC 33.4 g/dL (28.0-37.0); MCV 98.4 fL (80.0-100.0); MONOCYTES 19.2 % (1.0-8.0); PLATELET COUNT 327 thou/uL (150-400); POLYS 74.1 % (36.0-66.0); PROTIME 10.9 Seconds (10.5-12.1); RBC 3.59 mil/uL (4.50-6.00); RDW 14.5 % (10.5-14.5); WBC 7.9 thou/uL (4.0-11.0)
[2021-01-28 12:05] LABS: TOTAL BILIRUBIN 1.2 mg/dL (0.2-1.0); TOTAL PROTEIN 6.7 g/dL (6.4-8.2)
[2021-01-28 13:50] LABS: FOLIC ACID 19.3 ng/mL (8.6-58.9)
[2021-01-28] MEDS ORDERED: PROPAFENONE 22225 M1 PO (14:26)
[2021-01-28 20:48] VITALS: BP 124/72
[2021-01-28 21:30] VITALS: BP 128/68
--- NOTE | 2021-01-29 01:48 | NUR ---
PATIENT IS A NEW PATIENT TO THE UNIT HE ARRIVED VIA CART FROM THE ER AND WAS ABLE TO AMBULATE TO THE BED WITH ASSISTANCE. PATIENT IS FULLY ALERT AND ORIENTED AND ABLE TO FULLY PARTICIPATE IN HIS ADMISSION AND CARE. VITAL SIGNS STABLE WITH PATIENT CLAIMING NO PAIN FROM EYE LACERATION. NURSE TO COMPLETE ADMISSION AND INITIATE PLAN OF CARE.
[2021-01-29 04:49] VITALS: BP 124/67
[2021-01-29 04:54] LABS: HEMATOCRIT 31.7 % (42.0-52.0); HEMOGLOBIN 10.8 gm/dL (14.0-18.0); MCH 33.7 pg (26.0-34.0); MCHC 34.1 g/dL (28.0-37.0); MCV 98.9 fL (80.0-100.0); RBC 3.2 mil/uL (4.50-6.00); RDW 14.2 % (10.5-14.5); WBC 7.1 thou/uL (4.0-11.0)
[2021-01-29 05:12] LABS: ALBUMIN 2.3 g/dL (3.4-5.0); CALCIUM 7.9 mg/dL (8.5-10.1); CREATININE 0.9 mg/dL (0.7-1.3); MAGNESIUM 1.8 mg/dL (1.8-2.4); PHOSPHORUS 2.7 mg/dL (2.5-4.9); POTASSIUM 3.6 mmol/L (3.5-5.1); TOTAL BILIRUBIN 0.8 mg/dL (0.2-1.0)
--- NOTE | 2021-01-29 07:29 | EKG ---
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1940 Requested By: Giovanny Rich Order Number: [id number] MD: Rolando Puckett Measurements Intervals [place] Rate: 78 P: 41 OR: 182 QRS: -15 QRSD: 105 T: 82 QT: 372 QTc: 424 Interpretive Statements Sinus rhythm Borderline left axis deviation Borderline low voltage, extremity leads Anteroseptal infarct, old Minimal ST depression, lateral leads Compared to ECG 01/22/2021 10:04:56 Myocardial infarct finding now present ST (T wave) deviation now present Electronically Signed On 01-29-2021 7:29:45 CDT by Rolando Puckett [email or web address] <ELECTRONICALLY SIGNED> By: Rolando Puckett MD, FAC 01/29/21 0729 1132 1132 Rolando Puckett MD, [facility] /EPI
[2021-01-29 08:00] VITALS: BP 130/73
[2021-01-29 12:08] VITALS: BP 125/70
[2021-01-29 16:00] VITALS: BP 126/76
[2021-01-29 17:06] LABS: HAV IgM AB (ANTI-HAV IgM) Negative (Negative); HEPATITIS B SURFACE AG Negative (Negative); HEPATITIS C VIRUS AB <0.1 (0.0-0.9)
--- NOTE | 2021-01-29 17:06 | NUR ---
ASSUMED CARE SHIFT CHANGE. VSS. DENIES PAIN. O2 SATS WNL RA. STRESS TEST AND MRI SPINE THIS SHIFT--REFER TO RESULTS. PT UP STB ASSIST JUANITO WELL. FALL PRECAUTIONS IN PLACE. SINA LI CHANGED. STITCHES REMAIN INTACT. REHAB CONSULT. PLAN FOR POSSIBLE 5N POST DISCHARGE. DENIES NEEDS CURRENTLY. CONT POC, WILL PASS REPORT TO SHAYNA WALLS.
--- NOTE | 2021-01-29 17:30 | NUR ---
Patient admits post fall at home. He resides in home with . All needs on one level. Patient independent with adls. he cont to drive. Patient was walking down driveway to retrieve newspaper. He reports he did not see paper and began to walk back. he felt weakness and fell. Patient too high level for 5N and patient wants to return home at ms. Gave home health list to review. Patient reports he and have taken care of friends. He has walker, cane, electric wc if needed. He currently uses no DME.
[2021-01-29 21:25] VITALS: BP 135/87
[2021-01-30 05:23] LABS: HEMATOCRIT 31.4 % (42.0-52.0); HEMOGLOBIN 10.9 gm/dL (14.0-18.0); MCH 34.5 pg (26.0-34.0); MCHC 34.7 g/dL (28.0-37.0); MCV 99.4 fL (80.0-100.0); RBC 3.15 mil/uL (4.50-6.00); RDW 14.1 % (10.5-14.5); WBC 5.6 thou/uL (4.0-11.0)
[2021-01-30 05:36] LABS: ALBUMIN 2.3 g/dL (3.4-5.0); CALCIUM 8.5 mg/dL (8.5-10.1); CREATININE 0.9 mg/dL (0.7-1.3); MAGNESIUM 1.9 mg/dL (1.8-2.4); PHOSPHORUS 2.7 mg/dL (2.6-4.7); POTASSIUM 3.9 mmol/L (3.5-5.1); TOTAL BILIRUBIN 0.6 mg/dL (0.2-1.0)
[2021-01-30 05:48] VITALS: BP 146/82
[2021-01-30 08:12] VITALS: BP 127/79
[2021-01-30 11:32] VITALS: BP 127/79
--- NOTE | 2021-01-30 11:40 | NUR ---
Patient to discharge home with HH care. Gave patient list of home health agencies. Patient with no preference. [facility]reras liason to visit with patient regarding home health care.
--- NOTE | 2021-01-30 11:45 | NUR ---
PT ALERT AND ORIENTED TIMES FOUR. VSS. PT DENIES PAIN/SOA. PT TOLERATES MEDS AND MEALS. PLANS FOR DISACHARGE TODAY. PT AT BESIDE THIS MORNING. WILL CONTINUE TO MONITOR.
--- NOTE | 2021-01-30 14:25 | NUR ---
FAXED DISCHARGE ORDERS AND SUMMARY TO [facility]. WILL CONFIRM WITH YUSUF/LIAISON THAT THEY RECEIVED. [facility] P [phone]; FAX [phone]; M [phone] YUSUF
== END 2021-01-30 16:40 | disposition home health service (06) ==
LOC: ER 10:40 → EROBS 13:36 → 2N 13:36 → EROBS 14:21 → 2N 20:42
PROVIDERS: Emergency Medicine; ADMIT Internal Medicine; ATTEND Internal Medicine
DX: E87.1 Hypo-osmolality and hyponatremia (principal); R77.8 Other specified abnormalities of plasma proteins; S01.81XA Laceration without foreign body of other part of head, initial encounter; I48.91 Unspecified atrial fibrillation; M17.12 Unilateral primary osteoarthritis, left knee; F41.9 Anxiety disorder, unspecified; F32.9 Major depressive disorder, single episode, unspecified; R55 Syncope and collapse; M62.82 Rhabdomyolysis; Z79.82 Long term (current) use of aspirin; Z79.899 Other long term (current) drug therapy; Z86.73 Personal history of transient ischemic attack (TIA), and cerebral infarction without residual deficits; W18.30XA Fall on same level, unspecified, initial encounter; Y93.89 Activity, other specified; Y92.89 Other specified places as the place of occurrence of the external cause